=== PATIENT | male | born 1975 | race African-American/Black ===

== ENCOUNTER 2017-03-18 15:11 | Emergency (ER) | payer MEDICAID ==
[~2017-03-18] VITALS: Ht 180.3 cm; Wt 74.8 kg
[~2017-03-18 15:11] MED LIST: CYMBALTA30 MG PO; GLUCOPHAGE500 MG PO; GLUCOPHAGE850 MG PO; NICODERM 21MG/241 EA TD; NOVOLOG100 UNIT/3 SUBQ; QUETIAPINE FUM200 MG PO; RISPERDAL2 MG PO; TRAZODONE HCL100 MG PO; TRAZODONE HCL50 MG PO
[2017-03-18] MEDS ORDERED: Lidocaine 1% 10mg/ml/Epi 0.005mg/ml 30ml vial INJ ONE (15:30)
[2017-03-18] MEDS ORDERED: Tetanus/Diptheria/Pertussis Vaccine 0.5ml Syr IM ONE (15:30)
[2017-03-18] MEDS ORDERED: Bacitracin Oint UD TOPIC ONE (15:30)
[2017-03-18 15:50] VITALS: BP 141/102
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
[2017-03-18] MEDS ORDERED: TYLENOL EXTRA500 MG ORAL (16:24)
[2017-03-18] MEDS ORDERED: BACITRACIN-P28.35 GM TP (16:24)
[2017-03-18 16:35] VITALS: BP 144/98
[2017-03-26] MEDS ORDERED: GABAPENTIN600 MG ORAL (15:15)
== END 2017-03-18 16:40 | disposition home or self-care (01) ==
LOC: EDBD 15:11 → EMR 15:30
DX: S01.81XA Laceration without foreign body of other part of head, initial encounter (principal); Y04.0XXA Assault by unarmed brawl or fight, initial encounter; Y92.89 Other specified places as the place of occurrence of the external cause; Z23 Encounter for immunization; E11.9 Type 2 diabetes mellitus without complications
CPT/HCPCS: 12013; 90471; 90715; 99283; Z7502

== ENCOUNTER → 2017-03-26 | Emergency (ER) | payer MEDICAID ==
[~2017-03-26] VITALS: Ht 185.4 cm; Wt 77.1 kg
[~2017-03-26] MED LIST changes: +BACITRACIN-P28.35 GM TP; +GABAPENTIN600 MG ORAL; +TYLENOL EXTRA500 MG ORAL
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
[2017-03-26 15:45] VITALS: BP 146/91
== END | disposition home or self-care (01) ==
LOC: EMR 15:48
DX: S01.81XD Laceration without foreign body of other part of head, subsequent encounter (principal); X58.XXXD Exposure to other specified factors, subsequent encounter; Z48.02 Encounter for removal of sutures; E11.9 Type 2 diabetes mellitus without complications
CPT/HCPCS: 99282